=== PATIENT | female | born 1970 ===

== ENCOUNTER 2024-06-11 12:51 | Outpatient (CLI) | payer OTHER, SELFPAY ==
--- NOTE | ~2024-06-11 | CT_ITS ---
EXAMINATION:CT diagnostic chest wo/w con DATE: 06/11/2024 13:20 INDICATION: Cervical radiculopathy. TECHNIQUE: Computed tomography (CT) of the chest was performed without and with 75 mL Omnipaque 350 i ntravenous contrast. Automated exposure control and iterative reconstruction technique were employed. The dose-length product (DLP) was 764.68 mGy-cm. COMPARISON: None. FINDINGS: The lungs demonstrate mild atelectasis. No pleural effusion. There are nodules in the thyro id measuring up to 6 mm, likely not clinically significant. The heart size is normal. No pericardial effusion. There is a small sliding hiatal hernia. There is mild cervical and thoracic spondylosis. IMPRESSION: 1. Small sliding hiatal hernia. Reviewed, dictated and finalized at location A.
== END 2024-06-11 12:52 | disposition home or self-care (01) ==
LOC: MICIMG 12:53
PROVIDERS: PCP Family Medicine; Visit Provider Nurse Practitioner Family
DX: M54.12 Radiculopathy, cervical region (principal); K44.9 Diaphragmatic hernia without obstruction or gangrene
CPT/HCPCS: 71270; Q9967